=== PATIENT | female | born 1980 ===

== ENCOUNTER 2021-04-21 07:00 | Inpatient (IN) | payer OTHER ==
[2021-04-21 08:40] VITALS: BMI 29.1
[2021-04-21 09:45] LABS: BASO % 0.2 % (0-2.0); EOS % 0.8 % (0-4.5); HEMOGLOBIN 10.7 GM/dL (10.7-15.3); MCH 29.2 pg (25.7-33.7); MCHC 32.5 g/dl (32.0-36.0); MEAN CELL VOLUME 89.6 fl (80-96); MEAN PLT VOLUME 11.1 fl (7.5-11.1); MONO % 9.9 % (3.8-10.2); NEUT % 67.1 % (42.8-82.8); PLATELET COUNT 138 K/MM3 (134-434); RBC 3.68 M/mm3 (3.60-5.2); RDW 15.6 % (11.6-15.6); WHITE BLOOD COUNT 8.7 K/mm3 (4.0-10.0)
[2021-04-21 09:50] LABS: INR 0.97 (0.83-1.09); PROTHROMBIN TIME (PATIENT) 11.9 SEC (9.7-13.0)
[2021-04-21 09:53] LABS: ACTIVATED PTT 27.5 SECONDS (25.2-36.5)
[2021-04-21 09:58] LABS: CALCIUM 8.3 mg/dL (8.5-10.1)
[2021-04-21 09:59] LABS: BLOOD UREA NITROGEN 7.8 mg/dL (7-18)
[2021-04-21] MEDS: ELECTROLYTE-148 SOLN 1,000 ML IV SCH ×2 (10:00→13:52)
[2021-04-21 10:02] LABS: CREATININE 0.7 mg/dL (0.55-1.3)
[2021-04-21] MEDS ORDERED: PROMETHAZINE HCL 25 MG/1 ML VIAL IVPUSH ONE (10:37)
[2021-04-21] MEDS ORDERED: BUTORPHANOL TARTRATE 1 MG/ML VIAL IVPB ONE (10:37)
[2021-04-21] MEDS ORDERED: OXYTOCIN 30 UNITS in 0.9% NS 30 UNIT/500 ML INFUS.BAG IVPB SCH (10:45)
[2021-04-21 10:56] LABS: HIV INTERPRETATION NEGATIVE (NEGATIVE)
[2021-04-21] MEDS ORDERED: CITRIC ACID/SODIUM CITRATE 30 ML UNIT-DOSE CUP PO ONE (19:32)
[2021-04-21] MEDS ORDERED: morphine SULFATE/PF 0.5 MG/ML (2cc Syringe - QUVA) ONE (19:33)
[2021-04-21] MEDS ORDERED: PHENYLEPHRINE HCL 10 MG/1 ML SINGLE DOSE VIAL ONE (19:34)
[2021-04-21] MEDS ORDERED: ceFAZolin SODIUM 1 GM VIAL ONE ×2 (19:48)
[2021-04-21] MEDS ORDERED: OXYTOCIN 10 UNITS/ML VIAL ONE ×4 (21:05→21:06)
[2021-04-21] MEDS ORDERED: ONDANSETRON 4 MG/2 ML VIAL IVPUSH PRN (21:07)
[2021-04-21] MEDS ORDERED: ACETAMINOPHEN 325 MG TABLET (FP) PO PRN (21:07)
[2021-04-21] MEDS ORDERED: IBUPROFEN 600 MG TABLET (FP) PO PRN (21:07)
[2021-04-21] MEDS ORDERED: oxyCODONE HCL 5 MG TABLET PO PRN (21:49)
[2021-04-21] MEDS ORDERED: METHYLERGONOVINE MALEATE 0.2 MG/1 ML AMP IM PRN (21:49)
[2021-04-21] MEDS ORDERED: OXYTOCIN 20 UNITS in 0.9% NS 20 UNIT/1,000 ML INFUS.BAG IV SCH (22:00)
[2021-04-21] MEDS ORDERED: ACETAMINOPHEN 325 MG TABLET (FP) ONE (23:40)
[2021-04-21] MEDS ORDERED: IBUPROFEN 600 MG TABLET (FP) PO ONE (23:40)
[2021-04-22] MEDS: IBUPROFEN 800 MG/8 ML IJ IVPB PRN ×2 (02:03→13:38)
[2021-04-22 09:29] LABS: BASO % 0.2 % (0-2.0); EOS % 0.2 % (0-4.5); HEMATOCRIT 28.7 % (32.4-45.2); HEMOGLOBIN 9.3 GM/dL (10.7-15.3); LYMPH % 9.9 % (8-40); MCH 28.9 pg (25.7-33.7); MCHC 32.5 g/dl (32.0-36.0); MEAN PLT VOLUME 10.6 fl (7.5-11.1); MONO % 6.6 % (3.8-10.2); NEUT % 83.1 % (42.8-82.8); PLATELET COUNT 118 K/MM3 (134-434); RBC 3.23 M/mm3 (3.60-5.2); RDW 15.3 % (11.6-15.6); WHITE BLOOD COUNT 12.1 K/mm3 (4.0-10.0)
[2021-04-22] MEDS: PRENATAL VITAMINS W/ FOLIC ACID TABLET (FP) PO SCH (10:30)
[2021-04-22] MEDS: ACETAMINOPHEN 325 MG TABLET (FP) PO PRN (20:24)
[2021-04-22] MEDS: oxyCODONE HCL 5 MG TABLET PO PRN (20:25)
[2021-04-22] MEDS: SENNOSIDES/DOCUSATE COMBO (SENNA PLUS) TABLET (UD) PO PRN (20:26)
[2021-04-22] MEDS: SIMETHICONE 80 MG TAB.CHEW (FP) PO PRN (20:26)
[2021-04-22] MEDS ORDERED: BISACODYL 10 MG SUPP.RECT RC PRN (21:49)
[2021-04-23] MEDS: PRENATAL VITAMINS W/ FOLIC ACID TABLET (FP) PO SCH (09:27)
[2021-04-23] MEDS: IBUPROFEN 600 MG TABLET (FP) PO PRN (09:27)
[2021-04-23] MEDS: ACETAMINOPHEN 325 MG TABLET (FP) PO PRN ×2 (09:28→19:48)
[2021-04-23] MEDS: oxyCODONE HCL 5 MG TABLET PO PRN (19:47)
[2021-04-23] MEDS: SIMETHICONE 80 MG TAB.CHEW (FP) PO PRN (19:48)
[2021-04-23] MEDS: SENNOSIDES/DOCUSATE COMBO (SENNA PLUS) TABLET (UD) PO PRN (19:49)
[2021-04-24] MEDS: IBUPROFEN 600 MG TABLET (FP) PO PRN (08:39)
[2021-04-24] MEDS: ACETAMINOPHEN 325 MG TABLET (FP) PO PRN (08:39)
[2021-04-24] MEDS: SIMETHICONE 80 MG TAB.CHEW (FP) PO PRN (08:44)
[2021-04-24] MEDS: PRENATAL VITAMINS W/ FOLIC ACID TABLET (FP) PO SCH (09:34)
[2021-04-24 09:36] VITALS: BP 129/83; PULSE 81; TEMP 98.5
== END 2021-04-24 10:10 | disposition home or self-care (01) | DRG 540 ==
LOC: JLDR 07:00 → J3W 04-22 01:16
PROVIDERS: ADMIT Obstetrics & Gynecology; ATTEND Obstetrics & Gynecology
PROC: 10D00Z1 Extraction of Products of Conception, Low, Open Approach (ICD-10-PCS; principal; 2021-04-21)
PROC: 3E033VJ Introduction of Other Hormone into Peripheral Vein, Percutaneous Approach (ICD-10-PCS; 2021-04-21)
PROC: 0UB90ZZ Excision of Uterus, Open Approach (ICD-10-PCS; 2021-04-21)
DX: O76 Abnormality in fetal heart rate and rhythm complicating labor and delivery (principal); O41.02X0 Oligohydramnios, second trimester, not applicable or unspecified; O69.81X0 Labor and delivery complicated by cord around neck, without compression, not applicable or unspecified; O34.13 Maternal care for benign tumor of corpus uteri, third trimester; D25.0 Submucous leiomyoma of uterus; Z3A.40 40 weeks gestation of pregnancy; Z37.0 Single live birth
CPT/HCPCS: 36415; 80048; 85025; 85610; 85730; 86780; 86850; 86900; 86901; 87389; 88305-TC; 88307-TC; C9803; U0003; U0005